=== PATIENT | female | born 1995 | race Caucasian/White ===

== ENCOUNTER 2016-08-27 10:03 | Emergency (ER) | payer MEDICAID ==
[~2016-08-27] VITALS: Ht 170.2 cm; Wt 60.0 kg
[2016-08-27 10:04] VITALS: BP 114/69; PULSE 84; RESP 20; TEMP 97.8; O2SAT 100
[2016-08-27] MEDS ORDERED: METH5TAB PO (10:17)
--- NOTE | 2016-08-27 10:30 | PD ---
HPI Chief Complaint: Medical Clearance Time Seen by Provider: 10:18 Travel History International Travel<30 days: No Contact w/Intl Traveler<30days: No Traveled to known affect area: No History of Present Illness HPI 20-year-old female sent here from [facility] for proof of a healthy . The patient was at [facility] today for detox from methadone. She states that she is approximately 14 weeks and has been receiving care in [place]. She has had 3 ultrasounds during this which show a normal IUP. She denies abdominal pain. No vaginal bleeding or discharge. PFSH Past Medical History Medical History: Denies Significant Hx ?: Not LMP: 05/21/16 Past Surgical History Surgical History: No Previous Surgery Social History Alcohol Use: No Tobacco Use: Yes (4 cigarettes per day) Substance Use: No (heroin in past, off for 7 years now) Allergies-Medications (Allergen,Severity, Reaction): Coded Allergies: Penicillin (Verified Allergy, Severe, Anaphylaxis, 08/27/16) Reported Meds & Prescriptions Reported Meds & Active Scripts Active Reported Methadone (Methadone HCl) 5 Mg Tab 2.5 Mg PO DAILY Review of Systems Except as stated in HPI: all other systems reviewed are Neg Physical Exam Narrative GENERAL: Well-developed, well-nourished, comfortable, no acute distress. SKIN: Focused skin assessment warm/dry. GASTROINTESTINAL: Abdomen soft, non-tender, nondistended. Gravid uterus palpable below umbilicus. PSYCHIATRIC: Appropriate mood and affect; insight and judgment normal. Data Data Last Documented VS Vital Signs Date Time Temp Pulse Resp B/P Pulse Ox O2 Delivery O2 Flow Rate FiO2 08/27/16 10:04 97.8 84 20 114/69 100 Room Air MDM Medical Decision Making Medical Screen Exam Complete: Yes Emergency Medical Condition: Yes Differential Diagnosis Narrative Course Patient is here to prove to [facility] that she has a live before beginning detox from methadone. Bedside ultrasound was performed by me and shows a large IUP with a heart rate of 158 bpm. Procedures Procedure Narrative Bedside transabdominal ultrasound: Using the curvilinear ultrasound probe, large IUP visualized with a heart rate of 158 bpm. Diagnosis Primary Impression: Qualified Code: Z3A.49 - More than 42 weeks gestation of Referrals: [facility] Additional Instructions: You have a normal-appearing intrauterine with a heart rate of 158 bpm. Follow-up with [facility] today. Disposition: 01 DISCHARGE HOME Condition: Stable Evan Bonds MD August 27, 2016 10:30
== END 2016-08-27 10:35 | disposition home or self-care (01) ==
LOC: NEPD 10:03
DX: O26.92 Pregnancy related conditions, unspecified, second trimester (principal); Z3A.14 14 weeks gestation of pregnancy
CPT/HCPCS: 99282

== ENCOUNTER 2016-09-16 20:06 | Emergency (ER) | payer MEDICAID ==
[~2016-09-16 20:06] MED LIST: METH5TAB PO
--- NOTE | 2016-09-16 20:46 | PD ---
HPI Chief Complaint Placenta previa Date Seen: Sep 16, 2016 Time Seen: 20:30 Travel History International Travel<30 Days: No Contact w/Intl Traveler<30Days: No Known Affected Area: No History of Present Illness HPI 20-year-old 4 para 3 at 19+ weeks gestation who has been having light vaginal bleeding off and on for the last 5 days. She was seen at [facility] earlier this week and was diagnosed with a partial placenta previa. She denies any change in her symptoms since that evaluation but was asked to come here by her caregivers at [facility]. She denies leakage of fluid, abdominal pain or discharge. No abdominal trauma. She is not currently sexually active due to her inpatient status at [facility]. Para: 3 : 4 History Past Medical History Narrative Medical History of opioid abuse currently on methadone Obstetric History Obstetric History 3 prior vaginal deliveries Past Surgical History Narrative Surgical None Surgical History: No Previous Surgery Family History Family History: Negative Social History Alcohol Use: No Tobacco Use: Yes (none 4 months) Substance Abuse: Yes (history of opiate abuse currently on methadone) Allergies-Medications (Allergen,Severity, Reaction): Coded Allergies: Penicillin (Verified Allergy, Severe, Anaphylaxis, 08/27/16) Home Meds Reported Medications Methadone 5 Mg Tab2.5 Mg PO DAILY Ref 0 08/27/16 Review of Systems Except as stated in HPI: all other systems reviewed are Neg Physical Exam Narrative GENERAL: Well-nourished, well-developed patient. SKIN: Warm and dry. HEAD: Normocephalic and atraumatic. EYES: No scleral icterus. No injection or drainage. ENT: No nasal drainage noted. Mucous membranes pink. Airway patent. NECK: Supple, trachea midline. No JVD. CARDIOVASCULAR: Regular rate and rhythm without murmurs, gallops, or rubs. RESPIRATORY: Breath sounds equal bilaterally. No accessory muscle use. ABDOMEN/GI: Abdomen soft, non-tender, bowel sounds present, no rebound, no guarding Gravid to [-] weeks size Fundal Height: [U-] GENITOURINARY: External Genitalia: intact and normal in appearance BUS glands: [-] FHT's: Category: [-] Baseline: [140-] Reactive: [-] Variability: [-] Decels: [-] EXTREMITIES: No cyanosis or edema. BACK: Nontender without obvious deformity. No CVA tenderness. NEUROLOGICAL: Awake and alert. Motor and sensory grossly within normal limits. Five out of 5 muscle strength in all muscle groups. Normal speech. Data Data Vital Signs Reviewed: Yes MDM Medical Record Reviewed: Yes Narrative Course / MDM Assessment: 19 week partial placenta previa Plan: Previa precautions were reviewed with the patient. She has follow-up care visit scheduled with Dr. Rider. She is Rh+ Diagnosis Diagnosis: Primary Impression: 19 weeks gestation of Additional Impression: Partial previa Disposition: 01 DISCHARGE HOME Condition: Good Jt Sloan MD Sep 16, 2016 20:46
== END 2016-09-16 22:57 | disposition home or self-care (01) ==
LOC: HOBED 20:06
DX: O44.32 Partial placenta previa with hemorrhage, second trimester (principal); Z3A.19 19 weeks gestation of pregnancy; Z87.891 Personal history of nicotine dependence; Z79.891 Long term (current) use of opiate analgesic
CPT/HCPCS: 99281

== ENCOUNTER → 2017-05-09 | Outpatient (CLI) | payer MEDICAID | LOC: HPND 12:11 | PROVIDERS: ATTEND Obstetrics & Gynecology | DX: O20.0 Threatened abortion (principal); O09.292 Supervision of pregnancy with other poor reproductive or obstetric history, second trimester | CPT/HCPCS: 76811; 76817 ==

== ENCOUNTER → 2017-05-29 | Outpatient (CLI) | payer MEDICAID | LOC: HPND 08:37 | PROVIDERS: ATTEND Obstetrics & Gynecology | DX: O34.42 Maternal care for other abnormalities of cervix, second trimester (principal); O09.292 Supervision of pregnancy with other poor reproductive or obstetric history, second trimester | CPT/HCPCS: 76815; 76817 ==

== ENCOUNTER → 2017-06-11 | Outpatient (CLI) | payer MEDICAID | LOC: HPND 09:31 | PROVIDERS: ATTEND Obstetrics & Gynecology | DX: O09.292 Supervision of pregnancy with other poor reproductive or obstetric history, second trimester (principal); O34.42 Maternal care for other abnormalities of cervix, second trimester | CPT/HCPCS: 76816; 76817 ==

== ENCOUNTER → 2017-07-13 | Outpatient (CLI) | payer MEDICAID | LOC: HPND 10:26 | PROVIDERS: ATTEND Obstetrics & Gynecology | DX: O09.292 Supervision of pregnancy with other poor reproductive or obstetric history, second trimester (principal) | CPT/HCPCS: 76816 ==

== ENCOUNTER 2017-08-20 14:02 | Emergency (ER) | payer MEDICAID ==
--- NOTE | 2017-08-20 14:45 | PD ---
HPI Chief Complaint Patient send over from [facility] due to LOF Date Seen: August 20, 2017 Time Seen: 14:49 Travel History International Travel<30 Days: No Contact w/Intl Traveler<30Days: No History of Present Illness HPI Patient is a 21-year-old at 33/5 presenting from OB triage due to reported a loss of fluid since yesterday. Patient denies vaginal bleeding or contractions. Endorses movement. Report from biophysical profile 8 out of 8, NST reactive total of 10 out of 10. Weeks Gestation: 33 Para: 3 : 5 Miscarriage: 1 : 0 History Past Medical History Medical History: Denies Significant Hx Obstetric History Obstetric History Patient has had history of abruption and demise in 10/2016 at 27 wks [place] -Partial abruption 2 yrs ago with her son -No prior complications with this current All prior pregnancies were Past Surgical History Narrative Surgical D&C after abruption in 10/2016 Family History Narrative Family History Patient reports that her father, mother, grandmother has history of blood clots. She is on aware of etiology of blood clots current and her family. Social History Alcohol Use: No Tobacco Use: No (Former smoker quit 6 years ago, before that used to smoke half a pack a day for 3 years.) Substance Abuse: No Allergies-Medications (Allergen,Severity, Reaction): Coded Allergies: penicillin G (Unverified Allergy, Severe, Anaphylaxis, 11/22/16) Home Meds Reported Medications Methadone (Methadone) 5 Mg Tab, 2.5 MG PO DAILY, TAB 0 Refills 08/27/16 Narrative Medication Aspirin 81 mg daily vitamins Review of Systems Except as stated in HPI: all other systems reviewed are Neg Physical Exam Narrative GENERAL: Well-nourished, well-developed patient. SKIN: Warm and dry. HEAD: Normocephalic and atraumatic. EYES: No scleral icterus. No injection or drainage. ENT: No nasal drainage noted. Mucous membranes pink. Airway patent. NECK: Supple, trachea midline. No JVD. CARDIOVASCULAR: Regular rate and rhythm without murmurs, gallops, or rubs. RESPIRATORY: Breath sounds equal bilaterally. No accessory muscle use. BREASTS: Bilateral exam showed no masses , no retractions, no nipple discharge. ABDOMEN/GI: Abdomen soft, non-tender, bowel sounds present, no rebound, no guarding Gravid to 33/5 weeks size GENITOURINARY: External Genitalia: intact and normal in appearance Dilatation: Closed Membranes: intact Uterine Contractions: none FHT's: Category: 2 Baseline: 150 Reactive: yes Variability: moderate Decels: 1 small decel EXTREMITIES: No cyanosis. Trace edema around ankles bilaterally. BACK: Nontender without obvious deformity. No CVA tenderness. NEUROLOGICAL: Awake and alert. Motor and sensory grossly within normal limits. Five out of 5 muscle strength in all muscle groups. Normal speech. Data Data Vital Signs Reviewed: Yes [facility] Medical Record Reviewed: Yes Plan 21-year-old at 33/5 sent in from [facility] due to reported loss of fluid. Vital signs stable amnisure negative Biophysical profile 11/14, and reactive NST category 2 on cervical exam pt found to be closed,no contraction detected on monitor Diagnosis Diagnosis: Primary Impression: 33 weeks gestation of Disposition: 01 DISCHARGE HOME Condition: Stable Patient Instructions: General Instructions, Early Labor Signs (ED), Premature Rupture of Membranes (ED) Beronica Díaz MD, R1 August 20, 2017 14:45
== END 2017-08-20 15:27 | disposition home or self-care (01) ==
LOC: HOBED 14:02
DX: O26.893 Other specified pregnancy related conditions, third trimester (principal); Z3A.33 33 weeks gestation of pregnancy
CPT/HCPCS: 59025; 84112